=== PATIENT | female | born 1955 | race Caucasian/White ===

== ENCOUNTER 2019-04-22 14:01 | Emergency (ER) | payer MEDICARE, BC, SELFPAY ==
[2019-04-22 14:03] VITALS: BP 144/74; PULSE 71; RESP 18; TEMP 35.9; O2SAT 92; BMI 41.5
--- NOTE | 2019-04-22 14:34 | CT_ITS ---
STUDY: CT ABDOMEN AND PELVIS WITHOUT CONTRAST REASON FOR EXAM: Female, 63 years old. Abdominal pain RADIATION DOSAGE (If Supplied By Facility): CTDIvol = ( 14.80 ) mGy, DLP = ( 674.24 ) mGycm TECHNIQUE: Transaxial images were obtained from the dome of the diaphragm to the symphysis pubis without oral contrast, and without intravenous contrast. Sagittal and coronal images were reconstructed. Individualized dose optimization techniques were used for this CT. COMPARISON: None. FINDINGS: The visualized lung bases are unremarkable. The visualized portions of the heart are within normal limits. Normal liver. Normal gallbladder and extrahepatic biliary system. Normal spleen. Normal pancreas. Normal bilateral adrenal glands. Normal right kidney. Normal left kidney. Normal visualized stomach. Normal small intestine. Normal colon. The appendix is visualized and appears normal. There is diffuse atherosclerotic calcification of the abdominal aorta, without a demonstrated aneurysm. Normal inferior vena cava. Normal retroperitoneum. Normal urinary bladder. There is a small umbilical hernia containing fat. L5 spondylolysis with grade 1 spinal listhesis of L5 on S1 with degenerative disc disease. CT/Abdomen/Pelvis without Cont IMPRESSION: No acute abnormality. Electronically Signed: Quincy Gandhi MD at 15:51 EDT Tel , Service support ,
--- NOTE | 2019-04-22 14:37 | ED.DCSUM_ITS ---
- ER Visit Summary Date of Service: 04/22/19 Chief Complaint: [Back and abdomen pain] History of Present Illness: The patient is a 63 F [presents to the emergency department with 5-day history of pain in her right back that wraps around the front of the abdomen. Patient states the pain typically is brought on made worse by eating. She had nausea and did vomit one time yesterday. Patient states the pain is a 10 out of 10 at times but currently is only a 7 out of 10. She denies urinary symptoms. She is had subjective fever at home and sweats. She denies urinary symptoms. No history of kidney stones. She denies any chest pain or shortness of breath. Pain does not seem to be made worse by moving. Pain is not pleuritic.] Physical Examination: [HEENT-PERRLA, EOMI. Cranial nerves II through XII grossly intact. TMs clear. Mucous membranes moist. No adenopathy. Cardiovascular-regular rate and rhythm without murmur or ectopy Lungs-clear to auscultation, chest wall stable without crepitus or subcu emphysema Abdomen-normoactive bowel sounds, soft. Patient has tenderness palpation over the right upper quadrant as well as the right lower quadrant. Patient is guarding. There is no rebound, rigidity, or perineal signs. Extremities-intact ?4, normal range of motion, normal pulses, atraumatic] Test Results: [] Emergency Department Course and Treatment: [] Treatment Plan: [] Disposition: [] Impression: [] This note was generated with [employer] dictation software. It may contain incorrect words, spelling, and punctuation that were not noted in review of the chart prior to signing <Graham Abad - Last Filed: 04/22/19 14:35> - ER Visit Summary Date of Service: 04/22/19 Patient was seen by me and turned over to me. She has a normal CT and normal ultrasound. This is likely gastritis I will treat as such. I will refer to GI <Alberto Wang - Last Filed: 04/22/19 17:44> ED Disposition <Graham Abad - Last Filed: 04/22/19 14:35> <Alberto Wang - Last Filed: 04/22/19 17:44> - Plan for ED Patient: Instructions: ED Gastritis, ED PUD Vs Gastritis Prescriptions: Hydrocodone Bitart/Apap 5-325 [[place] 5MG-325MG] 1 tab PO Q6H PRN PRN 3 Days #12 tab PRN Reason: Pain Omeprazole 40 mg PO DAILY #30 capsule.dr Referrals: Mansoor Carlson MD [NON-STAFF] - 3-5 Days
[2019-04-22] MEDS: HYDROmorphone 1 MG/ML Syringe IV (14:48)
[2019-04-22] MEDS: 0.9% Normal Saline 1,000 ML 125 ML IV (14:48)
[2019-04-22] MEDS: Ondansetron 4 MG/2 ML Vial IV (14:48)
[2019-04-22 15:06] LABS: Absolute Lymphocyte Count 2.57 X10^3/ul (0.83-4.51); Basophil# 0.03 X10^3/uL; Basophil% 0.4 % (0-1); Eosinophil# 0.19 X10^3/uL; Eosinophils% 2.6 % (0-5); Hematocrit 48.4 % (37-47); Hemoglobin 16.5 g/dl (12.0-15.0); Lymphocyte # 2.57 X10^3/ul (4.0); Lymphocyte % 35.6 % (19-41); Mean Corp Hgb Conc 34.1 g/gl (32-36); Mean Corpuscular Hgb 30.2 pg (27.0-32.0); Mean Corpuscular Volume 88.6 fL (81-99); Mean Platelet Vol. 10.1 fl (6.2-12.0); Monocyte# 0.39 X10^3/uL; Monocyte% 5.4 % (0-10); Neutrophil # 4.03 X10^3/uL (2.7-7.7); Neutrophil % 55.9 % (47-70); Platelet Count 183 K/mm3 (150-450); RBC Distribution Width CV 13.6 % (11.6-14.6); RBC Distribution Width SD 43.8 fl (35.1-43.9); Red Blood Count 5.46 M/mm3 (4.2-5.4); White Blood Count 7.2 K/mm3 (4.4-11.0)
[2019-04-22 15:07] LABS: POSITIVE COUNT NO; POSITIVE DIFFERENTIAL NO; POSITIVE MORPHOLOGY NO
[2019-04-22 15:17] LABS: Bacteria 0 SEEN /hpf (None Seen); Mucous, Urine 0 SEEN /hpf (<or=2+); Red Blood Cells-Urine 0 SEEN /hpf (0-5)
[2019-04-22 15:20] LABS: AST(SGOT) 19 U/L (15-37); Alanine Aminotransfer ALT/SGPT 31 U/L (13-56); Albumin, Serum 3.6 g/dL (3.2-5.0); Alkaline Phosphatase 71 U/L (45-117); Anion Gap 4 (5-15); BUN 8 mg/dL (7-18); BUN/Creat Ratio 11.3 RATIO (10-20); Calcium,Total 9.7 mg/dL (8.5-10.1); Chloride 101 mmol/L (98-107); Creatinine, Serum 0.71 mg/dL (0.55-1.02); EST Glomerular Filtration Rate 88 mL/min (>60); Est Glom Filt Rate - Afr Amer 106 mL/min (>60); Estimated Creatinine Clearance 116.35 ml/min; Globulin 3.6 g/dL (2.2-4.2); Glucose 99 mg/dL (74-106); Lipase 46 U/L (73-393); Potassium 3.8 mmol/L (3.5-5.1); Protein, Total 7.2 g/dL (6.4-8.2); Sodium Level 137 mmol/L (136-145)
[2019-04-22 15:21] LABS: Color, Urine Yellow (Yellow); Glucose, Dipstick Normal (Normal); Ketone-Dipstick 5 mg/dl (Negative); Leukocyte Esterase-Dipstick 25 /ul (Negative); Nitrite-Dipstick Negative (Negative); Occult Blood-Urine 10 /ul (Negative); Protein-Dipstick 15 mg/dl (Negative); Specific Gravity, Urine 1.025 (1.002-1.030); Urine Bilirubin Dipstick Negative (Negative); Urine Clarity Sl. Cloudy (Clear); Urine Urobilinogen 1 mg/dl (Normal)
[2019-04-22 15:43] LABS: Calcium Oxalate Crystals Ur 4+ /hpf (<or=2+); Squamous Epithelial Cells - UA 5-10 SEEN /hpf (5-10); White Blood Cells 0-5 SEEN /hpf (0-5)
--- NOTE | 2019-04-22 16:17 | US_ITS ---
STUDY: ABDOMINAL ULTRASOUND - RIGHT UPPER QUADRANT REASON FOR VISIT: Female, 63 years old. Right abdominal pain with intermittent nausea x 5 days. TECHNIQUE: Ultrasound evaluation of the right upper quadrant was performed with real-time and static matson-scale imaging. TECHNICAL QUALITY: Adequate. COMPARISON: None. FINDINGS: Liver: The liver measures 16.1 cm. There is normal echogenicity of the liver. The bile ducts are within normal limits. There is hepatic color flow. The direction of portal flow is hepatopetal. There is no demonstrated mass lesion. Gallbladder: Normal distended gallbladder. The gallbladder wall measures 2 mm. There is a negative sonographic Cason's sign. There is no pericholecystic fluid. There are 2 nonshadowing, nonmobile echogenic structures along the gallbladder wall that suggest polyps. One is in the anterior body of the gallbladder, measuring 4 x 5 x 4 mm. The second is at the neck of the gallbladder measuring 4 x 5 x 3 mm. Common Bile Duct (C.B.D.): The common bile duct measures 4 mm. Pancreas: Normal size of the head, body and tail of the pancreas. There is normal echogenicity of the pancreas. There is no demonstrated pancreatic mass or cyst. Right Kidney: Normal size of the right kidney. The right kidney measures 10.3 x 4.5 x 4.1 cm. Normal renal cortex. The right cortex measures 1.7 cm. There is no demonstrated renal mass or cyst. There is no right hydronephrosis. US/Gallbladder IMPRESSION: Findings consistent with two 5 mm probable polyps in the gallbladder. No sign of acute cholecystitis or bile duct obstruction. Electronically Signed: Aurelio Floyd MD at 17:26 EDT , Service support ,
[2019-04-22] MEDS: Morphine 4 MG/ML Syringe IV (17:52)
[2019-04-22 17:57] VITALS: BP 124/83; PULSE 63; RESP 17; O2SAT 97
== END 2019-04-22 18:03 | disposition home or self-care (01) ==
PROVIDERS: Emergency Provider Emergency Medicine; Family Provider Family Medicine; PCP Family Medicine
DX: R10.9 Unspecified abdominal pain (principal); M54.9 Dorsalgia, unspecified; R11.2 Nausea with vomiting, unspecified; Z72.0 Tobacco use
CPT/HCPCS: 74176; 76705; 80053; 81001; 83690; 85025; 96361; 96374; 96375; 99283; J2405

== ENCOUNTER → 2019-04-23 11:55 | Outpatient (CLI) | payer MEDICARE, BC, SELFPAY ==
[2019-04-22 14:03] VITALS: BMI 41.5
--- NOTE | 2019-04-23 12:14 | RAD_ITS ---
HISTORY: CHRONIC LOW BACK PAIN COMPARISON: None FINDINGS: # of images incl. paperwork: 2 XR Spine Lumbar 2 Views: Lumbar vertebral bodies are normal in height. Lumbar disc spaces are well maintained. No acute lumbar spine fracture or subluxation. Degenerative disc disease is present at the L1-L2, L2-L3, L3-L4, L4-L5, and L5-S1 levels. There is also likely some degenerative disc disease within the lower thoracic spine but to a lesser degrees. This disease is manifested by loss of disc height, endplate sclerosis, and a few levels a few small anterior enthesophytes. L4-5 is anteriorly subluxed on as 1 x 1.5 cm. Pars interarticularis defects are present at L5. Spina bifida occulta is present at L5. Facet arthropathy is mild and is at the L3-L4, L4-L5 levels. It is greater the L5-S1 level. Left hemipelvic phlebolith is present. Bowel gas pattern is normal. RAD/Lumbar Spine 2 or 3 Views IMPRESSION: Spondylolysis and spondylolisthesis of L5 with degenerative disc disease at L5-S1.. at 0129 Reported and signed by: Justin Zamora MD Electronically Signed: Justin Zamora MD at 1:28 EDT Tel , Service support ,
== END ==
PROVIDERS: Family Provider Family Medicine; PCP Family Medicine; Referring Provider Anesthesiology Pain Medicine; Visit Provider Anesthesiology Pain Medicine
DX: M54.9 Dorsalgia, unspecified (principal)
CPT/HCPCS: 72100

== ENCOUNTER → 2023-06-08 | Outpatient (CLI) | payer MEDICARE, BC, SELFPAY ==
[2023-06-08 10:24] LABS: Hematocrit 53.5 % (37-47); Hemoglobin 16.7 g/dL (12.0-15.0); Mean Corp Hgb Conc 31.2 g/dL (32-36); Mean Corpuscular Hgb 28.6 pg (27.0-32.0); Mean Corpuscular Volume 91.8 fL (81-99); Mean Platelet Vol. 11.1 fl (6.2-12.0); Platelet Count 198 K/mm3 (150-450); RBC Distribution Width CV 14.1 % (11.6-14.6); RBC Distribution Width SD 47.8 fl (35.1-43.9); Red Blood Count 5.83 M/mm3 (4.2-5.4); White Blood Count 7.3 K/mm3 (4.4-11.0)
[2023-06-08 11:01] LABS: Anion Gap 5 (5-15); BUN 13 mg/dL (7-18); BUN/Creat Ratio 18.6 RATIO (10-20); Calcium,Total 9.2 mg/dL (8.5-10.1); Chloride 106 mmol/L (98-107); Cholesterol 255 mg/dL (200); EST Glomerular Filtration Rate 88 mL/min (>60); Est Glom Filt Rate - Afr Amer 106 mL/min (>60); Glucose 105 mg/dL (74-106); High Density Lipoprotein 42 mg/dL; Potassium 4.6 mmol/L (3.5-5.1); Sodium Level 141 mmol/L (136-145); Triglycerides 131 mg/dL; Very Low Density Lipoprotein 26 mg/dL (5-40)
== END | disposition home or self-care (01) ==
LOC: MFPLAB 08:55
PROVIDERS: PCP Family Medicine; Visit Provider Family Medicine
DX: E55.9 Vitamin D deficiency, unspecified (principal); Z13.1 Encounter for screening for diabetes mellitus; Z13.29 Encounter for screening for other suspected endocrine disorder; E53.8 Deficiency of other specified B group vitamins; Z13.220 Encounter for screening for lipoid disorders; E78.5 Hyperlipidemia, unspecified
CPT/HCPCS: 36415; 80048; 80061; 82306; 84443; 85027

== ENCOUNTER → 2023-06-22 | Outpatient (CLI) | payer MEDICARE, BC, SELFPAY | END | disposition home or self-care (01) | PROVIDERS: PCP Family Medicine; Visit Provider Family Medicine | DX: N39.0 Urinary tract infection, site not specified (principal) | CPT/HCPCS: 87086; 87088; 87186 ==